=== PATIENT | female | born 1960 | race Caucasian/White ===

== ENCOUNTER 2016-11-28 16:15 | Inpatient (IN) | payer MEDICAID ==
[~2016-11-28] VITALS: Ht 152.4 cm; Wt 165.1 kg
[2016-11-28] MEDS ORDERED: VANCOMYCIN 2,500 MG in SODIUM CHLORIDE 0.9% 500 ML IV ONE (19:25)
[2016-11-28] MEDS ORDERED: PROMETHAZINE 25 MG/ML VIAL ONE (19:54)
[2016-11-28] MEDS ORDERED: MORPHINE 4 MG/ML SYR ONE (19:54)
[2016-11-28] MEDS ORDERED: PHARMACY TO DOSE VANCOMYCIN IV SCH (20:10)
[2016-11-28] MEDS ORDERED: SALINE FLUSH 10 ML FLUSH PRN (20:10)
[2016-11-28] MEDS ORDERED: LACTULOSE SOLN 20GM/30ML UDC PO PRN (20:10)
[2016-11-28] MEDS ORDERED: ALPRAZOLAM 0.25 MG TAB PO PRN (20:10)
[2016-11-28] MEDS ORDERED: ALU/MAG/SIM 30 ML UDC PO PRN (20:10)
[2016-11-28] MEDS ORDERED: PHARMACY TO DOSE ZOSYN IV SCH (20:15)
[2016-11-28] MEDS ORDERED: PHARMACY TO DOSE CEFEPIME IV SCH (22:40)
[2016-11-28] MEDS: DILAUDID 1 MG/ML AMP IV PRN (22:53)
[2016-11-28] MEDS: CEFEPIME 2000 MG/100 ML D5W 100 ML IV SCH (23:08)
[2016-11-28 23:12] VITALS: BP_SYST 180; BP_SYST 182; RESP 20; TEMP 97.7
[2016-11-28 23:15] VITALS: Ht 152.4 cm; Wt 165.1 kg
[2016-11-29] MEDS: DILAUDID 1 MG/ML AMP IV PRN ×4 (03:14→21:06)
[2016-11-29 03:17] VITALS: BP_SYST 168; RESP 18; TEMP 96.8
[2016-11-29] MEDS: ONDANSETRON 4 MG VIAL IV PUSH PRN ×3 (03:34→21:06)
[2016-11-29] MEDS: SODIUM CHLORIDE 0.9% FLUSH BAG 500 ML IV SCH (03:37)
[2016-11-29 07:25] VITALS: BP_SYST 158; RESP 12; TEMP 96
[2016-11-29] MEDS: SALINE FLUSH 10 ML FLUSH SCH ×2 (08:00→18:33)
[2016-11-29] MEDS: CEFEPIME 2000 MG/100 ML D5W 100 ML IV SCH ×2 (09:15→16:55)
[2016-11-29] MEDS: ENOXAPARIN 40 MG/0.4 ML SYR SUBQ SCH (09:18)
[2016-11-29] MEDS: VANCOMYCIN 2,000 MG in SODIUM CHLORIDE 0.9% 500 ML IV SCH ×2 (09:48→20:24)
[2016-11-29 10:48] VITALS: BP_SYST 160; RESP 16; TEMP 96.5
[2016-11-29] MEDS: TRIAMCIN TOPICAL SCH ×2 (12:00→20:15)
[2016-11-29 15:27] VITALS: BP_SYST 164; RESP 14; TEMP 96.1
[2016-11-29] MEDS: DAKIN'S 0.125% 480 ML TOPICAL SCH ×2 (18:22→20:15)
[2016-11-29 19:27] VITALS: BP_SYST 134; RESP 18; TEMP 96.7
[2016-11-29 23:40] VITALS: BP_SYST 140; RESP 18; TEMP 96.6
[2016-11-30] MEDS: CEFEPIME 2000 MG/100 ML D5W 100 ML IV SCH ×3 (01:10→17:11)
[2016-11-30] MEDS: DILAUDID 1 MG/ML AMP IV PRN ×5 (01:16→19:46)
[2016-11-30 04:59] VITALS: BP_SYST 162; RESP 18; TEMP 96.2
[2016-11-30] MEDS: SODIUM CHLORIDE 0.9% FLUSH BAG 500 ML IV SCH ×2 (05:49)
[2016-11-30] MEDS: ONDANSETRON 4 MG VIAL IV PUSH PRN ×3 (05:50→21:57)
[2016-11-30 07:54] VITALS: BP_SYST 148; RESP 18; TEMP 96.8
[2016-11-30] MEDS: SALINE FLUSH 10 ML FLUSH SCH ×2 (09:11→19:46)
[2016-11-30] MEDS: DAKIN'S 0.125% 480 ML TOPICAL SCH ×2 (09:12→22:01)
[2016-11-30] MEDS: ENOXAPARIN 40 MG/0.4 ML SYR SUBQ SCH (09:12)
[2016-11-30] MEDS: TRIAMCIN TOPICAL SCH ×2 (09:13→22:01)
[2016-11-30] MEDS: PROMETHAZINE 25 MG/ML VIAL IV PRN ×2 (09:25→17:12)
[2016-11-30] MEDS: ACETAMINOPHEN 325 MG TAB PO PRN ×2 (09:33→17:12)
[2016-11-30] MEDS: VANCOMYCIN 2,000 MG in SODIUM CHLORIDE 0.9% 500 ML IV SCH ×2 (10:19→21:47)
[2016-11-30 11:40] VITALS: BP_SYST 130; RESP 18; TEMP 96.4
[2016-11-30 14:35] VITALS: BP_SYST 140; RESP 18; TEMP 96.7
[2016-11-30 20:13] VITALS: BP_SYST 138; RESP 18; TEMP 97
[2016-11-30 23:00] VITALS: BP_SYST 130; RESP 18; TEMP 97.6
[2016-12-01] VITALS (9 sets, daily range): BP systolic 130–170; RESP 16–22; TEMP 96.6–97.8
[2016-12-01] MEDS: PROMETHAZINE 25 MG/ML VIAL IV PRN ×4 (00:15→19:37)
[2016-12-01] MEDS: ACETAMINOPHEN 325 MG TAB PO PRN ×3 (00:17→16:35)
[2016-12-01] MEDS: CEFEPIME 2000 MG/100 ML D5W 100 ML IV SCH ×4 (00:44→23:48)
[2016-12-01] MEDS: DILAUDID 1 MG/ML AMP IV PRN ×2 (01:59→08:24)
[2016-12-01] MEDS: SODIUM CHLORIDE 0.9% FLUSH BAG 500 ML IV SCH ×2 (03:05→06:17)
[2016-12-01] MEDS: SALINE FLUSH 10 ML FLUSH SCH ×2 (08:22→19:29)
[2016-12-01] MEDS: ONDANSETRON 4 MG VIAL IV PUSH PRN (08:23)
[2016-12-01] MEDS: ENOXAPARIN 40 MG/0.4 ML SYR SUBQ SCH (08:23)
[2016-12-01] MEDS: DAKIN'S 0.125% 480 ML TOPICAL SCH ×2 (08:24→23:45)
[2016-12-01] MEDS: TRIAMCIN TOPICAL SCH ×2 (08:25→23:44)
[2016-12-01] MEDS: VANCOMYCIN 2,000 MG in SODIUM CHLORIDE 0.9% 500 ML IV SCH ×2 (10:03→19:31)
[2016-12-01] MEDS ORDERED: MORPHINE 5 MG/1 ML VIAL IV PRN (12:30)
[2016-12-01] MEDS: MORPHINE 2 MG/ML SYR IV PRN ×3 (13:54→23:46)
[2016-12-01] MEDS: IRBESARTAN 150 MG TAB PO SCH (15:39)
[2016-12-01] MEDS: BUMETANIDE 1 MG TAB PO SCH ×2 (15:39→19:32)
[2016-12-01] MEDS ORDERED: MISSING DOSE XX ONE (19:50)
[2016-12-02] MEDS: ONDANSETRON 4 MG VIAL IV PUSH PRN ×2 (00:10→12:00)
[2016-12-02] MEDS: PROMETHAZINE 25 MG/ML VIAL IV PRN ×4 (02:06→21:39)
[2016-12-02 03:30] VITALS: BP_SYST 138; RESP 18; TEMP 96.7
[2016-12-02] MEDS: MORPHINE 2 MG/ML SYR IV PRN ×4 (04:57→22:40)
[2016-12-02] MEDS: SODIUM CHLORIDE 0.9% FLUSH BAG 500 ML IV SCH ×2 (04:58)
[2016-12-02] MEDS: LEVOTHYROXINE 0.15 MG TAB PO SCH (04:59)
[2016-12-02 07:15] VITALS: BP_SYST 144; RESP 18; TEMP 97.2
[2016-12-02] MEDS: SALINE FLUSH 10 ML FLUSH SCH ×2 (08:01→20:44)
[2016-12-02] MEDS: CEFEPIME 2000 MG/100 ML D5W 100 ML IV SCH ×2 (08:02→15:59)
[2016-12-02] MEDS: ENOXAPARIN 40 MG/0.4 ML SYR SUBQ SCH (08:02)
[2016-12-02] MEDS: IRBESARTAN 150 MG TAB PO SCH (08:03)
[2016-12-02] MEDS: BUMETANIDE 1 MG TAB PO SCH ×2 (08:03→20:47)
[2016-12-02] MEDS: METOLAZONE 5 MG TAB PO SCH (08:03)
[2016-12-02] MEDS: VANCOMYCIN 2,000 MG in SODIUM CHLORIDE 0.9% 500 ML IV SCH ×2 (08:46→20:47)
[2016-12-02 11:15] VITALS: BP_SYST 138; RESP 18; TEMP 97.6
[2016-12-02] MEDS: DAKIN'S 0.125% 480 ML TOPICAL SCH ×2 (13:39→22:38)
[2016-12-02] MEDS: TRIAMCIN TOPICAL SCH ×2 (13:39→22:38)
[2016-12-02 15:11] VITALS: BP_SYST 140; RESP 18; TEMP 97.8
[2016-12-02 19:23] VITALS: BP_SYST 142; RESP 18; TEMP 97.9
[2016-12-02 23:31] VITALS: BP_SYST 144; RESP 18; TEMP 98.3
[2016-12-03] MEDS: CEFEPIME 2000 MG/100 ML D5W 100 ML IV SCH ×4 (00:28→23:42)
[2016-12-03] MEDS: MORPHINE 2 MG/ML SYR IV PRN ×5 (03:00→22:36)
[2016-12-03 04:35] VITALS: BP_SYST 160; RESP 18; TEMP 98.5
[2016-12-03] MEDS: SODIUM CHLORIDE 0.9% FLUSH BAG 500 ML IV SCH ×2 (05:03)
[2016-12-03] MEDS: PROMETHAZINE 25 MG/ML VIAL IV PRN ×3 (05:04→19:59)
[2016-12-03] MEDS: LEVOTHYROXINE 0.15 MG TAB PO SCH (05:04)
[2016-12-03] MEDS: SALINE FLUSH 10 ML FLUSH SCH ×2 (07:49→19:58)
[2016-12-03 07:52] VITALS: BP_SYST 152; RESP 20; TEMP 97.5
[2016-12-03] MEDS: METOLAZONE 5 MG TAB PO SCH (08:20)
[2016-12-03] MEDS: VANCOMYCIN 2,000 MG in SODIUM CHLORIDE 0.9% 500 ML IV SCH ×2 (08:20→19:59)
[2016-12-03] MEDS: IRBESARTAN 150 MG TAB PO SCH (08:21)
[2016-12-03] MEDS: BUMETANIDE 1 MG TAB PO SCH ×2 (08:21→16:43)
[2016-12-03] MEDS: DAKIN'S 0.125% 480 ML TOPICAL SCH ×2 (08:22→20:38)
[2016-12-03] MEDS: ENOXAPARIN 40 MG/0.4 ML SYR SUBQ SCH (08:22)
[2016-12-03] MEDS: TRIAMCIN TOPICAL SCH ×2 (08:23→20:40)
[2016-12-03] MEDS: ONDANSETRON 4 MG VIAL IV PUSH PRN ×2 (08:26→16:44)
[2016-12-03 11:09] VITALS: BP_SYST 154; RESP 16; TEMP 96.6
[2016-12-03 15:21] VITALS: BP_SYST 156; RESP 18; TEMP 97.4
[2016-12-03 19:51] VITALS: BP_SYST 132; RESP 18; TEMP 98.5
[2016-12-03 23:14] VITALS: BP_SYST 138; RESP 18; TEMP 97.1
[2016-12-03] MEDS: BUMETANIDE 1 MG/4 ML VIAL IV SCH (23:43)
[2016-12-04] MEDS: PROMETHAZINE 25 MG/ML VIAL IV PRN ×4 (02:26→23:41)
[2016-12-04] MEDS: MORPHINE 2 MG/ML SYR IV PRN ×5 (03:51→22:34)
[2016-12-04] MEDS: BUMETANIDE 1 MG/4 ML VIAL IV SCH ×4 (05:00→23:34)
[2016-12-04] MEDS: SODIUM CHLORIDE 0.9% FLUSH BAG 500 ML IV SCH ×2 (05:00→05:02)
[2016-12-04 06:04] VITALS: BP_SYST 142; RESP 20; TEMP 97.3
[2016-12-04] MEDS: LEVOTHYROXINE 0.15 MG TAB PO SCH (06:10)
[2016-12-04 07:38] VITALS: BP_SYST 144; RESP 18; TEMP 97.7
[2016-12-04] MEDS: METOLAZONE 5 MG TAB PO SCH (08:42)
[2016-12-04] MEDS: CEFEPIME 2000 MG/100 ML D5W 100 ML IV SCH ×3 (08:43→23:34)
[2016-12-04] MEDS: ENOXAPARIN 40 MG/0.4 ML SYR SUBQ SCH (08:43)
[2016-12-04] MEDS: SALINE FLUSH 10 ML FLUSH SCH ×2 (08:43→20:52)
[2016-12-04] MEDS: TRIAMCIN TOPICAL SCH (08:44)
[2016-12-04] MEDS: DAKIN'S 0.125% 480 ML TOPICAL SCH (08:44)
[2016-12-04] MEDS: VANCOMYCIN 2,000 MG in SODIUM CHLORIDE 0.9% 500 ML IV SCH ×2 (10:14→20:52)
[2016-12-04 11:08] VITALS: BP_SYST 136; RESP 20; TEMP 97.4
[2016-12-04 15:33] VITALS: BP_SYST 158; RESP 16; TEMP 98.4
[2016-12-04 19:58] VITALS: BP_SYST 142; RESP 16; TEMP 97.1
[2016-12-04] MEDS: ONDANSETRON 4 MG VIAL IV PUSH PRN (20:52)
[2016-12-04 23:07] VITALS: BP_SYST 116; RESP 16; TEMP 98.8
[2016-12-05] MEDS: MORPHINE 2 MG/ML SYR IV PRN ×5 (02:30→20:38)
[2016-12-05 03:35] VITALS: BP_SYST 112; RESP 18; TEMP 98.4
[2016-12-05] MEDS: PROMETHAZINE 25 MG/ML VIAL IV PRN ×4 (05:39→22:39)
[2016-12-05] MEDS: LEVOTHYROXINE 0.15 MG TAB PO SCH (06:42)
[2016-12-05] MEDS: SODIUM CHLORIDE 0.9% FLUSH BAG 500 ML IV SCH (06:42)
[2016-12-05] MEDS: DAKIN'S 0.125% 480 ML TOPICAL SCH ×3 (06:44→20:38)
[2016-12-05] MEDS: TRIAMCIN TOPICAL SCH ×3 (06:44→20:38)
[2016-12-05 07:39] VITALS: BP_SYST 120; RESP 20; TEMP 97.5
[2016-12-05] MEDS: SALINE FLUSH 10 ML FLUSH SCH ×2 (08:21→20:39)
[2016-12-05] MEDS: METOLAZONE 5 MG TAB PO SCH (08:21)
[2016-12-05] MEDS: CEFEPIME 2000 MG/100 ML D5W 100 ML IV SCH ×2 (08:21→16:22)
[2016-12-05] MEDS: BUMETANIDE 1 MG TAB PO SCH ×2 (08:22→16:24)
[2016-12-05] MEDS: ENOXAPARIN 40 MG/0.4 ML SYR SUBQ SCH (08:23)
[2016-12-05] MEDS ORDERED: BUMETANIDE 1 MG/4 ML VIAL IV SCH (09:00)
[2016-12-05] MEDS: VANCOMYCIN 2,000 MG in SODIUM CHLORIDE 0.9% 500 ML IV SCH ×2 (09:12→20:37)
[2016-12-05] MEDS ORDERED: KCL CR 20 MEQ TAB PO ONE (09:15)
[2016-12-05 11:19] VITALS: BP_SYST 118; RESP 18; TEMP 97.3
[2016-12-05 16:08] VITALS: BP_SYST 120; RESP 18; TEMP 94.9
[2016-12-05 19:30] VITALS: BP_SYST 118; RESP 18; TEMP 97.3
[2016-12-05] MEDS: KCL CR 10 MEQ TAB PO SCH (20:38)
[2016-12-05] MEDS: ONDANSETRON 4 MG VIAL IV PUSH PRN (20:46)
[2016-12-05 22:47] VITALS: BP_SYST 122; RESP 20; TEMP 97.9
[2016-12-06] MEDS: MORPHINE 2 MG/ML SYR IV PRN ×2 (00:53→04:50)
[2016-12-06] MEDS ORDERED: MISSING DOSE XX ONE (00:55)
[2016-12-06] MEDS: CEFEPIME 2000 MG/100 ML D5W 100 ML IV SCH ×2 (01:15→08:00)
[2016-12-06 03:48] VITALS: BP_SYST 126; RESP 18; TEMP 98.3
[2016-12-06] MEDS: PROMETHAZINE 25 MG/ML VIAL IV PRN (04:50)
[2016-12-06] MEDS: LEVOTHYROXINE 0.15 MG TAB PO SCH (04:51)
[2016-12-06] MEDS: SODIUM CHLORIDE 0.9% FLUSH BAG 500 ML IV SCH (04:51)
[2016-12-06 07:28] VITALS: BP_SYST 132; RESP 20; TEMP 96.8
[2016-12-06] MEDS: SALINE FLUSH 10 ML FLUSH SCH (08:00)
[2016-12-06] MEDS: BUMETANIDE 1 MG TAB PO SCH (09:00)
[2016-12-06] MEDS: KCL CR 10 MEQ TAB PO SCH (09:00)
[2016-12-06] MEDS: TRIAMCIN TOPICAL SCH (09:00)
[2016-12-06] MEDS: METOLAZONE 5 MG TAB PO SCH (09:00)
[2016-12-06] MEDS: ENOXAPARIN 40 MG/0.4 ML SYR SUBQ SCH (09:00)
[2016-12-06] MEDS: DAKIN'S 0.125% 480 ML TOPICAL SCH (09:00)
[2016-12-06 11:17] VITALS: BP_SYST 110; RESP 20; TEMP 96.8
[2016-12-06 11:22] VITALS: BP_SYST 110; RESP 20; TEMP 96.8
== END 2016-12-06 12:12 | disposition home or self-care (01) | DRG 602 ==
LOC: ENRESERVTM → ENRESERVDT → ENRESERV → ER 16:15 → EMR 20:10 → ENPENDDIS 20:10 → 4NT 22:02
PROVIDERS: ADMIT Internal Medicine; ATTEND Internal Medicine
CPT/HCPCS: 36415; 80053; 80202; 82565; 83605; 84520; 85025; 87040; 94660; 94799; 96365; 96375